=== PATIENT | male | born 1990 | race African-American/Black ===

== ENCOUNTER 2018-04-15 13:30 | Emergency (ER) | payer OTHER ==
[~2018-04-15] VITALS: Ht 172.7 cm; Wt 74.8 kg
[2018-04-15 13:32] VITALS: BP 110/65
[2018-04-15] MEDS ORDERED: ETOMIDATE (2MG/ML) 20ML VIAL IV ONE (13:45)
[2018-04-15] MEDS ORDERED: KETOROLAC TROMETH 30 MG/ML 1ML VIAL IV ONE (14:30)
== END 2018-04-15 14:38 | disposition left against medical advice (07) ==
LOC: ER 13:33
DX: S46.912A Strain of unspecified muscle, fascia and tendon at shoulder and upper arm level, left arm, initial encounter (principal); Z53.29 Procedure and treatment not carried out because of patient's decision for other reasons; X50.9XXA Other and unspecified overexertion or strenuous movements or postures, initial encounter; Y93.89 Activity, other specified; Y99.8 Other external cause status; Y92.89 Other specified places as the place of occurrence of the external cause
CPT/HCPCS: 29105; 73020; 94761